=== PATIENT | male | born 1970 | race Caucasian/White ===

== ENCOUNTER 2016-11-04 09:51 | Inpatient (IN) | payer SELFPAY ==
[2016-11-04 10:36] LABS: ABG CO2 ARTERIAL 18 mmol/L (21-27); ARTERIAL BLD GAS O2 SATURATION 93 % (95-98); ARTERIAL BLOOD GAS PCO2 31 mmHg (32-45); ARTERIAL PO2 70 mmHg (70-100); BICARBONATE 17 mmol/L (21-28); BLOOD GAS BASE EXCESS -8 mM/L (-/+3); PH 7.35 Units (7.35-7.45)
[2016-11-04 10:40] LABS: BASO % 0.1 % (0-2); EOS % 0.1 % (0-7); IMMATURE GRANULOCYTES ABSOLUTE 0.07 tho/cmm (0-0.03); IMMATURE GRANULOCYTES PERCENT 0.8 % (0-0.3); LYMPH % 6.3 % (20-45); LYMPH ABSOLUTE COUNT 0.6 tho/cmm (0.8-4.5); MCV (MEAN CELL VOLUME) 95.3 fl (82.0-96.0); MEAN PLATELET VOLUME 8.9 cmc (9.4-12.4); MONO % 8.9 % (0-12); MONOCYTE ABSOLUTE COUNT 0.8 tho/cmm (0.0-1.2); NEUTROPHIL ABSOLUTE COUNT 7.7 tho/cmm (1.6-8.0); NEUTROPHIL-AUTOMATED 7.7 tho/cmm (1.6-8.0); NEUTROPHILS % 83.8 % (40-80); PLATELET COUNT 68 tho/cmm (150-450); RED CELL DISTRIBUTION WIDTH 15.9 % (12.4-16.4); WHITE BLOOD COUNT 9.1 tho/cmm (4.0-10.0)
[2016-11-04 10:41] LABS: CARBON DIOXIDE-VENOUS 18 mmol/L (21-33); CREATININE 4.75 mg/dl (0.67-1.17); GLUCOSE 110 mg/dl (65-120); POTASSIUM 3.1 mmol/L (3.5-5.3); SODIUM 126 mmol/L (135-146); eGFR VALUE FOR BLACK 16 mL/Min
[2016-11-04 10:42] LABS: MCH (MEAN CORPUSCULAR HGB) 33.6 pg (28.0-32.0); MCHC MEAN CORPUSCULAR HGB CONC 35.3 % (32.0-36.0); RED BLOOD COUNT 1.07 mil/cmm (4.40-5.70)
[2016-11-04 10:46] LABS: INR 1.1 INR (0.9-1.1); PROTHROMBIN TIME 12.9 SECONDS (9.0-13.6)
[2016-11-04 10:58] LABS: ALB/GLOB RATIO 1.1 (0.8-2.0); ALBUMIN 2.1 g/dl (3.5-5.0); ALKALINE PHOSPHATASE 66 U/L (33-138); ANION GAP 12 mmol/L (0-20); AST/SGOT 27 U/L (10-40); BILIRUBIN,TOTAL 0.7 mg/dl (0.0-1.5); BLOOD UREA NITROGEN 77 mg/dl (6-24); CALCIUM 6.9 mg/dl (8.5-10.5); CHLORIDE 99 mmol/l (96-110)
[2016-11-04 10:59] LABS: ALCOHOL (ETOH) <10 mg/dl (<10)
[2016-11-04] MEDS ORDERED: NO HOME MEDICATION XX (10:59)
[2016-11-04 11:01] LABS: LIPASE 2427 U/L (73-393)
[2016-11-04 11:05] LABS: ALT/SGPT 16 U/L (12-78)
[2016-11-04 11:06] LABS: URINE LEUKOCYTE ESTERASE NEGATIVE (NEG); URINE PROTEIN LARGE (NEG); URINE SPECIFIC GRAVITY 1.015 (1.003-1.030)
[2016-11-04 11:08] LABS: URINE APPEARANCE HAZY; URINE BILIRUBIN NEGATIVE (NEG); URINE BLOOD LARGE (NEG); URINE COLOR YELLOW; URINE GLUCOSE (UA) SMALL (NEG); URINE KETONE NEGATIVE (NEG); URINE NITRITE NEGATIVE (NEG)
[2016-11-04 11:14] LABS: URINE RBC 15-20 /[HPF] (0-5)
[2016-11-04 11:21] LABS: URINE AMORPHOUS 1+; URINE EPITHELIAL CELLS 0-1 /[HPF] (0-10); URINE WBC 0-1 /[HPF] (0-5)
[2016-11-04 14:24] LABS: MAGNESIUM 1.2 mg/dl (1.8-2.6); PHOSPHOROUS 4.2 mg/dl (2.5-4.9)
[2016-11-04 14:26] LABS: TSH-THYROID STIMULATING HORM. 0.79 uIU/ml (0.40-3.80)
[2016-11-04 15:34] LABS: MAGNESIUM 1.4 mg/dl (1.8-2.6)
[2016-11-04 15:40] LABS: ANION GAP 19 mmol/L (0-20); BLOOD UREA NITROGEN 77 mg/dl (6-24); CALCIUM 6.7 mg/dl (8.5-10.5); CARBON DIOXIDE-VENOUS 16 mmol/L (22-32); CHLORIDE 102 mmol/l (96-110); CREATININE 4.67 mg/dl (0.60-1.30); GLUCOSE 123 mg/dL (70-110); SODIUM 134 mmol/L (135-145); eGFR VALUE FOR BLACK 16 mL/Min
[2016-11-04 15:44] LABS: POTASSIUM 2.9 mmol/L (3.7-5.1)
[2016-11-04 18:51] LABS: BLOOD UREA NITROGEN 73 mg/dl (6-24); CARBON DIOXIDE-VENOUS 15 mmol/L (22-32); CHLORIDE 104 mmol/l (96-110); CREATININE 4.52 mg/dl (0.60-1.30); GLUCOSE 114 mg/dL (70-110); SODIUM 134 mmol/L (135-145); eGFR VALUE FOR BLACK 17 mL/Min
[2016-11-04 19:01] LABS: HGB-HEMOGLOBIN 8.2 gm/dl (13.5-17.0)
[2016-11-04 19:19] LABS: ANION GAP 19 mmol/L (0-20); POTASSIUM 3.8 mmol/L (3.7-5.1)
[2016-11-04 19:20] LABS: CALCIUM 6.5 mg/dl (8.5-10.5)
[2016-11-04 20:40] LABS: ANION GAP 19 mmol/L (0-20); BLOOD UREA NITROGEN 76 mg/dl (6-24); CALCIUM 6.7 mg/dl (8.5-10.5); CARBON DIOXIDE-VENOUS 14 mmol/L (22-32); CHLORIDE 106 mmol/l (96-110); CREATININE 4.56 mg/dl (0.60-1.30); GLUCOSE 118 mg/dL (70-110); POTASSIUM 3.9 mmol/L (3.7-5.1); SODIUM 135 mmol/L (135-145); eGFR VALUE FOR BLACK 17 mL/Min
[2016-11-05 04:46] LABS: EOS % 0.1 % (0-7); HGB-HEMOGLOBIN 8.3 gm/dl (13.5-17.0); IMMATURE GRANULOCYTES ABSOLUTE 0.05 tho/cmm (0-0.03); IMMATURE GRANULOCYTES PERCENT 0.4 % (0-0.3); LYMPH % 5.7 % (20-45); LYMPH ABSOLUTE COUNT 0.7 tho/cmm (0.8-4.5); MEAN PLATELET VOLUME 10.9 cmc (9.4-12.4); MONO % 6.7 % (0-12); MONOCYTE ABSOLUTE COUNT 0.8 tho/cmm (0.0-1.2); NEUTROPHIL ABSOLUTE COUNT 10.3 tho/cmm (1.6-8.0); NEUTROPHIL-AUTOMATED 10.3 tho/cmm (1.6-8.0); NEUTROPHILS % 87.1 % (40-80); PLATELET COUNT 77 tho/cmm (150-450); WHITE BLOOD COUNT 11.8 tho/cmm (4.0-10.0)
[2016-11-05 05:24] LABS: RED BLOOD COUNT 2.69 mil/cmm (4.40-5.70)
[2016-11-05 05:25] LABS: HCT-HEMATOCRIT 22.8 % (36.0-53.5); MCH (MEAN CORPUSCULAR HGB) 30.8 pg (28.0-32.0); MCHC MEAN CORPUSCULAR HGB CONC 36.4 % (32.0-36.0); MCV (MEAN CELL VOLUME) 84.8 fl (82.0-96.0)
[2016-11-05 05:48] LABS: ALB/GLOB RATIO 0.8 (0.8-2.0); ALBUMIN 1.7 g/dl (3.5-5.0); ALKALINE PHOSPHATASE 55 U/L (33-138); ALT/SGPT 13 U/L (12-78); AMYLASE 189 U/L (20-90); ANION GAP 19 mmol/L (0-20); AST/SGOT 34 U/L (10-40); BLOOD UREA NITROGEN 77 mg/dl (6-24); CALCIUM 6.8 mg/dl (8.5-10.5); CARBON DIOXIDE-VENOUS 14 mmol/L (22-32); CHLORIDE 111 mmol/l (96-110); CREATININE 4.43 mg/dl (0.60-1.30); GLUCOSE 112 mg/dL (70-110); PHOSPHOROUS 4.4 mg/dl (2.5-4.9); POTASSIUM 3.7 mmol/L (3.7-5.1); SODIUM 140 mmol/L (135-145); eGFR VALUE FOR BLACK 17 mL/Min
[2016-11-05 05:51] LABS: LIPASE 675 U/L (73-393)
[2016-11-05 06:05] LABS: ARTERIAL BLD GAS O2 SATURATION 98 % (95-98); BICARBONATE 13 mmol/L (21-28); BLOOD GAS BASE EXCESS -11 mM/L (-/+3); PH 7.36 Units (7.35-7.45)
[2016-11-05 06:06] LABS: ABG CO2 ARTERIAL 13 mmol/L (21-27); ARTERIAL BLOOD GAS PCO2 23 mmHg (32-45); ARTERIAL PO2 102 mmHg (70-100)
[2016-11-05 11:16] LABS: HCT-HEMATOCRIT 10.2 % (36.0-53.5); HGB-HEMOGLOBIN 3.6 gm/dl (13.5-17.0)
[2016-11-05 18:59] LABS: URINE LEUKOCYTE ESTERASE POSITIVE (NEG); URINE PROTEIN MODERATE (NEG)
[2016-11-05 19:01] LABS: URINE APPEARANCE CLOUDY; URINE BILIRUBIN NEGATIVE (NEG); URINE BLOOD LARGE (NEG); URINE COLOR YELLOW; URINE GLUCOSE (UA) SMALL (NEG); URINE KETONE NEGATIVE (NEG); URINE NITRITE NEGATIVE (NEG)
[2016-11-05 19:09] LABS: URINE AMORPHOUS 3+
[2016-11-05 19:22] LABS: URINE TOTAL PROTEIN-RANDOM 149.3 mg/dl (<11.8)
[2016-11-06 05:12] LABS: EOS % 0.6 % (0-7); EOSINOPHIL ABSOLUTE COUNT 0.1 tho/cmm (0.0-0.7); HGB-HEMOGLOBIN 7.6 gm/dl (13.5-17.0); IMMATURE GRANULOCYTES ABSOLUTE 0.05 tho/cmm (0-0.03); IMMATURE GRANULOCYTES PERCENT 0.5 % (0-0.3); LYMPH % 7.8 % (20-45); LYMPH ABSOLUTE COUNT 0.8 tho/cmm (0.8-4.5); MCH (MEAN CORPUSCULAR HGB) 30.5 pg (28.0-32.0); MCV (MEAN CELL VOLUME) 87.1 fl (82.0-96.0); MEAN PLATELET VOLUME 10.2 cmc (9.4-12.4); MONO % 5.1 % (0-12); MONOCYTE ABSOLUTE COUNT 0.5 tho/cmm (0.0-1.2); NEUTROPHIL ABSOLUTE COUNT 8.4 tho/cmm (1.6-8.0); NEUTROPHIL-AUTOMATED 8.4 tho/cmm (1.6-8.0); PLATELET COUNT 83 tho/cmm (150-450); RED BLOOD COUNT 2.49 mil/cmm (4.40-5.70); RED CELL DISTRIBUTION WIDTH 20.9 % (12.4-16.4); WHITE BLOOD COUNT 9.8 tho/cmm (4.0-10.0)
[2016-11-06 05:17] LABS: HCT-HEMATOCRIT 21.7 % (36.0-53.5)
[2016-11-06 05:25] LABS: ANION GAP 16 mmol/L (0-20); BLOOD UREA NITROGEN 75 mg/dl (6-24); CARBON DIOXIDE-VENOUS 16 mmol/L (22-32); CHLORIDE 112 mmol/l (96-110); CREATININE 4.47 mg/dl (0.60-1.30); GLUCOSE 138 mg/dL (70-110); PHOSPHOROUS 4.3 mg/dl (2.5-4.9); POTASSIUM 3.4 mmol/L (3.7-5.1); SODIUM 141 mmol/L (135-145); eGFR VALUE FOR BLACK 17 mL/Min
[2016-11-06 11:23] LABS: URINE PRT/CR RATIO 2.33 Ratio (0.0-0.20)
[2016-11-07 05:24] LABS: BASO % 0.1 % (0-2); EOS % 1.3 % (0-7); EOSINOPHIL ABSOLUTE COUNT 0.1 tho/cmm (0.0-0.7); HGB-HEMOGLOBIN 6.8 gm/dl (13.5-17.0); IMMATURE GRANULOCYTES ABSOLUTE 0.03 tho/cmm (0-0.03); IMMATURE GRANULOCYTES PERCENT 0.3 % (0-0.3); LYMPH % 6.1 % (20-45); LYMPH ABSOLUTE COUNT 0.5 tho/cmm (0.8-4.5); MCH (MEAN CORPUSCULAR HGB) 30.2 pg (28.0-32.0); MCV (MEAN CELL VOLUME) 89.8 fl (82.0-96.0); MEAN PLATELET VOLUME 10.1 cmc (9.4-12.4); MONO % 6.1 % (0-12); MONOCYTE ABSOLUTE COUNT 0.5 tho/cmm (0.0-1.2); NEUTROPHIL ABSOLUTE COUNT 7.5 tho/cmm (1.6-8.0); NEUTROPHIL-AUTOMATED 7.5 tho/cmm (1.6-8.0); NEUTROPHILS % 86.1 % (40-80); PLATELET COUNT 81 tho/cmm (150-450); RED BLOOD COUNT 2.25 mil/cmm (4.40-5.70); RED CELL DISTRIBUTION WIDTH 21.5 % (12.4-16.4); WHITE BLOOD COUNT 8.7 tho/cmm (4.0-10.0)
[2016-11-07 05:46] LABS: HCT-HEMATOCRIT 20.2 % (36.0-53.5); MCHC MEAN CORPUSCULAR HGB CONC 33.7 % (32.0-36.0)
[2016-11-07 05:51] LABS: ANION GAP 15 mmol/L (0-20); BLOOD UREA NITROGEN 68 mg/dl (6-24); CALCIUM 7.1 mg/dl (8.5-10.5); CARBON DIOXIDE-VENOUS 18 mmol/L (22-32); CHLORIDE 116 mmol/l (96-110); GLUCOSE 107 mg/dL (70-110); POTASSIUM 3.6 mmol/L (3.7-5.1); SODIUM 145 mmol/L (135-145); eGFR VALUE FOR BLACK 18 mL/Min
[2016-11-07 06:27] LABS: PROCALCITONIN 0.34 ng/ml (0.05-0.09)
[2016-11-07 13:19] LABS: HGB-HEMOGLOBIN 9.3 gm/dl (13.5-17.0)
--- NOTE | 2016-11-07 19:42 | NUR ---
ELEVATED BLOOD PRESSURES THIS AFTERNOON NOT AFFECTED BY SCHEDULED AND PRN MEDICATIONS. IMS NOTIFIED. PRN MEDICATION TIMES ADJUSTED AND GIVEN STILL WITH NO CHANGED IN PRESSURES. DR. ALEXIS CALLS INTO TO DISCONTINUE ALL CARDIAC MEDICATIONS EXCEPT FOR PRN HYDRALAZINE AND STARTS A CARDENE DRIP TO BE DOSED BY PHARMACY. IMS ALSO ORDERS A MRI. PATIENT HAD A FEW APNIC EPISODES WHILE NURSE WAS AT BEDSIDE LASTING 5-6 SECONDS AT A TIME. FAMILY NOTIFIED OF MRI PROCEDURE. NEUROLOGY CONSULT IN TO SEE WELL PER IMS REQUEST.
[2016-11-07 22:11] LABS: TSH-THYROID STIMULATING HORM. 1.42 uIU/ml (0.40-3.80)
[2016-11-08 05:38] LABS: ANION GAP 15 mmol/L (0-20); BLOOD UREA NITROGEN 69 mg/dl (6-24); CALCIUM 7.4 mg/dl (8.5-10.5); CARBON DIOXIDE-VENOUS 19 mmol/L (22-32); CHLORIDE 118 mmol/l (96-110); CREATININE 4.22 mg/dl (0.60-1.30); GLUCOSE 154 mg/dL (70-110); POTASSIUM 3.9 mmol/L (3.7-5.1); SODIUM 148 mmol/L (135-145); eGFR VALUE FOR BLACK 18 mL/Min
[2016-11-08 05:41] LABS: BASO % 0.2 % (0-2); EOS % 0.9 % (0-7); EOSINOPHIL ABSOLUTE COUNT 0.1 tho/cmm (0.0-0.7); HGB-HEMOGLOBIN 9.5 gm/dl (13.5-17.0); IMMATURE GRANULOCYTES ABSOLUTE 0.05 tho/cmm (0-0.03); IMMATURE GRANULOCYTES PERCENT 0.6 % (0-0.3); LYMPH % 5.7 % (20-45); LYMPH ABSOLUTE COUNT 0.5 tho/cmm (0.8-4.5); MCV (MEAN CELL VOLUME) 89.9 fl (82.0-96.0); MEAN PLATELET VOLUME 11.2 cmc (9.4-12.4); MONOCYTE ABSOLUTE COUNT 0.4 tho/cmm (0.0-1.2); NEUTROPHIL ABSOLUTE COUNT 7.4 tho/cmm (1.6-8.0); NEUTROPHIL-AUTOMATED 7.4 tho/cmm (1.6-8.0); NEUTROPHILS % 87.6 % (40-80); PLATELET COUNT 91 tho/cmm (150-450); RED BLOOD COUNT 3.17 mil/cmm (4.40-5.70); RED CELL DISTRIBUTION WIDTH 22.5 % (12.4-16.4); WHITE BLOOD COUNT 8.5 tho/cmm (4.0-10.0)
[2016-11-08 05:47] LABS: HCT-HEMATOCRIT 28.5 % (36.0-53.5); MCHC MEAN CORPUSCULAR HGB CONC 33.3 % (32.0-36.0)
[2016-11-09 03:58] LABS: BASO % 0.2 % (0-2); EOS % 1.1 % (0-7); EOSINOPHIL ABSOLUTE COUNT 0.1 tho/cmm (0.0-0.7); HCT-HEMATOCRIT 28.9 % (36.0-53.5); HGB-HEMOGLOBIN 9.4 gm/dl (13.5-17.0); IMMATURE GRANULOCYTES ABSOLUTE 0.05 tho/cmm (0-0.03); IMMATURE GRANULOCYTES PERCENT 0.5 % (0-0.3); LYMPH % 4.6 % (20-45); LYMPH ABSOLUTE COUNT 0.5 tho/cmm (0.8-4.5); MCH (MEAN CORPUSCULAR HGB) 29.9 pg (28.0-32.0); MCHC MEAN CORPUSCULAR HGB CONC 32.5 % (32.0-36.0); MEAN PLATELET VOLUME 10.6 cmc (9.4-12.4); MONO % 7.7 % (0-12); MONOCYTE ABSOLUTE COUNT 0.8 tho/cmm (0.0-1.2); NEUTROPHIL ABSOLUTE COUNT 8.7 tho/cmm (1.6-8.0); NEUTROPHIL-AUTOMATED 8.7 tho/cmm (1.6-8.0); NEUTROPHILS % 85.9 % (40-80); PLATELET COUNT 102 tho/cmm (150-450); RED BLOOD COUNT 3.14 mil/cmm (4.40-5.70); RED CELL DISTRIBUTION WIDTH 22.2 % (12.4-16.4); WHITE BLOOD COUNT 10.1 tho/cmm (4.0-10.0)
[2016-11-09 04:10] LABS: ALBUMIN 1.8 g/dl (3.5-5.0); ANION GAP 16 mmol/L (0-20); BLOOD UREA NITROGEN 74 mg/dl (6-24); CALCIUM 7.4 mg/dl (8.5-10.5); CARBON DIOXIDE-VENOUS 17 mmol/L (22-32); CHLORIDE 116 mmol/l (96-110); CHOLESTEROL 70 mg/dl (120-200); CREATININE 4.17 mg/dl (0.60-1.30); GLUCOSE 182 mg/dL (70-110); HDL CHOLESTEROL 34 mg/dl (40-60); LDL CHOLESTEROL 29 mg/dl (0-99); MAGNESIUM 1.5 mg/dl (1.8-2.6); PHOSPHOROUS 2.7 mg/dl (2.5-4.9); POTASSIUM 4.4 mmol/L (3.7-5.1); SODIUM 145 mmol/L (135-145); TRIGLYCERIDES 35 mg/dl (<149); VLDL 7 mg/dl (0-30); eGFR VALUE FOR BLACK 18 mL/Min
[2016-11-10 03:16] LABS: BASO % 0.1 % (0-2); EOS % 1.5 % (0-7); EOSINOPHIL ABSOLUTE COUNT 0.2 tho/cmm (0.0-0.7); HCT-HEMATOCRIT 26.9 % (36.0-53.5); HGB-HEMOGLOBIN 8.8 gm/dl (13.5-17.0); IMMATURE GRANULOCYTES ABSOLUTE 0.03 tho/cmm (0-0.03); IMMATURE GRANULOCYTES PERCENT 0.3 % (0-0.3); LYMPH % 5.1 % (20-45); LYMPH ABSOLUTE COUNT 0.5 tho/cmm (0.8-4.5); MCH (MEAN CORPUSCULAR HGB) 30.4 pg (28.0-32.0); MCHC MEAN CORPUSCULAR HGB CONC 32.7 % (32.0-36.0); MCV (MEAN CELL VOLUME) 93.1 fl (82.0-96.0); MEAN PLATELET VOLUME 10.2 cmc (9.4-12.4); MONO % 8.9 % (0-12); MONOCYTE ABSOLUTE COUNT 0.9 tho/cmm (0.0-1.2); NEUTROPHIL ABSOLUTE COUNT 8.8 tho/cmm (1.6-8.0); NEUTROPHIL-AUTOMATED 8.8 tho/cmm (1.6-8.0); NEUTROPHILS % 84.1 % (40-80); PLATELET COUNT 84 tho/cmm (150-450); RED BLOOD COUNT 2.89 mil/cmm (4.40-5.70); RED CELL DISTRIBUTION WIDTH 21.2 % (12.4-16.4); WHITE BLOOD COUNT 10.4 tho/cmm (4.0-10.0)
[2016-11-10 03:24] LABS: ANION GAP 14 mmol/L (0-20); BLOOD UREA NITROGEN 76 mg/dl (6-24); CALCIUM 7.4 mg/dl (8.5-10.5); CARBON DIOXIDE-VENOUS 18 mmol/L (22-32); CHLORIDE 111 mmol/l (96-110); CREATININE 4.04 mg/dl (0.60-1.30); GLUCOSE 118 mg/dL (70-110); SODIUM 138 mmol/L (135-145); eGFR VALUE FOR BLACK 19 mL/Min
[2016-11-10 04:40] LABS: POTASSIUM 5.4 mmol/L (3.7-5.1)
[2016-11-11 03:21] LABS: BASO % 0.1 % (0-2); EOS % 1.3 % (0-7); EOSINOPHIL ABSOLUTE COUNT 0.1 tho/cmm (0.0-0.7); HCT-HEMATOCRIT 24.2 % (36.0-53.5); HGB-HEMOGLOBIN 7.9 gm/dl (13.5-17.0); IMMATURE GRANULOCYTES ABSOLUTE 0.04 tho/cmm (0-0.03); IMMATURE GRANULOCYTES PERCENT 0.5 % (0-0.3); LYMPH % 7.8 % (20-45); LYMPH ABSOLUTE COUNT 0.6 tho/cmm (0.8-4.5); MCH (MEAN CORPUSCULAR HGB) 30.5 pg (28.0-32.0); MCHC MEAN CORPUSCULAR HGB CONC 32.6 % (32.0-36.0); MCV (MEAN CELL VOLUME) 93.4 fl (82.0-96.0); MEAN PLATELET VOLUME 10.8 cmc (9.4-12.4); MONOCYTE ABSOLUTE COUNT 0.5 tho/cmm (0.0-1.2); NEUTROPHIL ABSOLUTE COUNT 6.2 tho/cmm (1.6-8.0); NEUTROPHIL-AUTOMATED 6.2 tho/cmm (1.6-8.0); NEUTROPHILS % 83.3 % (40-80); PLATELET COUNT 81 tho/cmm (150-450); RED BLOOD COUNT 2.59 mil/cmm (4.40-5.70); RED CELL DISTRIBUTION WIDTH 20.3 % (12.4-16.4); WHITE BLOOD COUNT 7.4 tho/cmm (4.0-10.0)
[2016-11-11 03:31] LABS: ALBUMIN 1.6 g/dl (3.5-5.0); ANION GAP 15 mmol/L (0-20); BLOOD UREA NITROGEN 82 mg/dl (6-24); CALCIUM 7.5 mg/dl (8.5-10.5); CARBON DIOXIDE-VENOUS 19 mmol/L (22-32); CHLORIDE 111 mmol/l (96-110); CREATININE 4.09 mg/dl (0.60-1.30); GLUCOSE 132 mg/dL (70-110); MAGNESIUM 1.6 mg/dl (1.8-2.6); PHOSPHOROUS 3.8 mg/dl (2.5-4.9); SODIUM 139 mmol/L (135-145); eGFR VALUE FOR BLACK 19 mL/Min
[2016-11-11 03:37] LABS: POTASSIUM 6.3 mmol/L (3.7-5.1)
== END 2016-11-12 23:00 | disposition expired | DRG 377 ==
LOC: EDMED 09:51 → EMR2 11:07 → BURN 11:11 → CCU 11-08 16:05 → 5EB 11-10 07:05
PROVIDERS: Emergency Medicine; Internal Medicine Cardiovascular Disease; Internal Medicine Pulmonary Disease; Nurse Practitioner; Psychiatry & Neurology Neurology; Registered Nurse; Surgery; ADMIT Hospitalist
PROC: 0DB28ZX Excision of Middle Esophagus, Via Natural or Artificial Opening Endoscopic, Diagnostic (ICD-10-PCS; principal; 2016-11-04)
PROC: 0DB98ZX Excision of Duodenum, Via Natural or Artificial Opening Endoscopic, Diagnostic (ICD-10-PCS; 2016-11-04)
PROC: 02HV33Z Insertion of Infusion Device into Superior Vena Cava, Percutaneous Approach (ICD-10-PCS; 2016-11-04)
DX: K92.2 Gastrointestinal hemorrhage, unspecified (principal); G93.40 Encephalopathy, unspecified; J96.01 Acute respiratory failure with hypoxia; F10.20 Alcohol dependence, uncomplicated
CPT/HCPCS: C1751; C8929; C9113; G0009; G0480; G0500; J0330; J0360; J1815; J2060; J2250; J2270; J3010; J3411; J3475; J3480; J7030; J7050; J7999; L4396; P9016; P9612